=== PATIENT | male | born 1935 | race Caucasian/White ===

== ENCOUNTER 2017-07-06 11:15 | Inpatient (IN) | payer MEDICAID, OTHER ==
[~2017-07-06] VITALS: Ht 165.1 cm; Wt 65.9 kg
[2017-07-06] MEDS ORDERED: SODIUM CHLORIDE 0.9% 500 ML IVB ONE (11:55)
[2017-07-06 12:10] LABS: Basophils # (auto) 0 uL; Basophils % (auto) 0.5 % (0.0-2.0); CONDITION Y; Eosinophils # (auto) 0.1 uL; Eosinophils % (auto) 1.4 % (0.0-7.0); Hemoglobin 16.1 g/dL (13.5-17.5); Lymphocytes % (auto) 17.8 % (10.0-50.0); Mean Corpuscular Hgb Conc. 34.2 g/dL (32.0-36.0); Mean Corpuscular Volume 93.4 fL (80.0-100.0); Mean Platelet Volume 8.1 fL (7.4-10.4); Monocytes # (auto) 0.6 uL; Monocytes % (auto) 9.8 % (0.0-12.0); Neutrophils # (auto) 4.1 uL; Neutrophils % (auto) 70.5 % (37.0-80.0); Platelet Count (auto) 229 10^3/uL (140-450); Red Cell Distribution Width 12.9 % (11.6-16.0); White Blood Cell 5.9 10^3/uL (4.4-10.8)
[2017-07-06 12:28] LABS: INR 1.11 (0.9-1.15); Partial Thromboplastin Time 25.5 sec (22.64-33.71); Prothrombin Time 12.1 sec (9.37-12.3)
[2017-07-06 12:30] LABS: Albumin 3.4 g/dL (3.4-5.0); Anion Gap 8 (5-15); Blood Urea Nitrogen 18 mg/dL (7-18); Calcium 8.2 mg/dL (8.5-10.1); Carbon Dioxide 21 mmol/L (21-32); Chloride 108 mmol/L (98-107); GFR African American 134 mL/min; GFR Non-African American 111 mL/min; Glucose 112 mg/dL (74-106); Magnesium 2.6 mg/dL (1.6-2.6); Potassium 4.5 mmol/L (3.5-5.1); Sodium 137 mmol/L (136-145)
[2017-07-06 12:35] LABS: Alkaline Phosphatase 85 U/L (45-117); Aspartate Aminotransferase 12 U/L (15-37); Bilirubin, Total 0.8 mg/dL (0.2-1.0); Total Protein 6.8 g/dL (6.4-8.2)
[2017-07-06 13:44] LABS: Urine Bilirubin Negative (Negative); Urine Blood Negative /uL (Negative); Urine Color Yellow (Yellow); Urine Glucose Normal (Normal); Urine Ketone Negative (Negative); Urine Nitrite Negative (Negative); Urine RBC <1 /hpf (0 - 3); Urine Squamous Epithelial Cell FEW /hpf (<5); Urine Urobilinogen Normal (Negative); Urine pH 6.5 (5.0-8.0)
[2017-07-06] MEDS ORDERED: NITROGLYCERIN 0.4 MG SL TAB SL PRN (13:45)
[2017-07-06] MEDS ORDERED: MORPHINE SULF INJ 2 MG/ML SYRINGE 1ML IV PRN (13:45)
[2017-07-06] MEDS ORDERED: ALBUTEROL SULF 2.5 MG/0.5ML(0.5%) NEB SOLN NEB PRN (13:45)
[2017-07-06] MEDS: SODIUM CHLORIDE 0.9% 1,000 ML IV SCH (13:53)
[2017-07-06] MEDS ORDERED: ASPirin 81 mg TAB PO ONE (14:15)
[2017-07-06 14:25] LABS: Urine Bilirubin Negative (Negative); Urine Blood Negative /uL (Negative); Urine Color Yellow (Yellow); Urine Glucose Normal (Normal); Urine Ketone Negative (Negative); Urine Mucus FEW (None Seen); Urine Nitrite Negative (Negative); Urine RBC <1 /hpf (0 - 3); Urine Squamous Epithelial Cell FEW /hpf (<5); Urine Urobilinogen Normal (Negative); Urine pH 6.5 (5.0-8.0)
[2017-07-06] MEDS: TAMSULOSIN HYDROCHLORIDE 0.4 MG CAP PO SCH (18:13)
[2017-07-06 21:00] VITALS: BP 123/55
[2017-07-06] MEDS: DONEPEZIL HYDROCHLORIDE 5 MG TAB PO SCH (21:09)
[2017-07-06 21:30] VITALS: BP 123/55
[2017-07-07] VITALS (8 sets, daily range): BP systolic 107–150; BP diastolic 34–72
[2017-07-07] MEDS ORDERED: MOME0.05 TOP (02:30)
[2017-07-07] MEDS ORDERED: AMLO5TAB2 PO (02:30)
[2017-07-07] MEDS ORDERED: KETO2CRE TOP (02:30)
[2017-07-07] MEDS ORDERED: CARV3.1240 PO (02:30)
[2017-07-07] MEDS ORDERED: ALPR0.254 PO (02:30)
[2017-07-07] MEDS ORDERED: LISI10TA6 PO (02:30)
[2017-07-07 06:21] LABS: Basophils # (auto) 0 uL; Basophils % (auto) 0.6 % (0.0-2.0); CONDITION Y; Eosinophils # (auto) 0.2 uL; Eosinophils % (auto) 2.6 % (0.0-7.0); Hematocrit 43.2 % (41.0-53.0); Hemoglobin 14.9 g/dL (13.5-17.5); Lymphocytes # (auto) 1.4 uL; Lymphocytes % (auto) 22.5 % (10.0-50.0); Mean Corpuscular Hemoglobin 32.2 pg (28.0-32.0); Mean Corpuscular Hgb Conc. 34.5 g/dL (32.0-36.0); Mean Corpuscular Volume 93.4 fL (80.0-100.0); Mean Platelet Volume 8.4 fL (7.4-10.4); Monocytes # (auto) 0.6 uL; Neutrophils # (auto) 3.9 uL; Neutrophils % (auto) 64.3 % (37.0-80.0); Platelet Count (auto) 211 10^3/uL (140-450); Red Cell Distribution Width 13.1 % (11.6-16.0); White Blood Cell 6.1 10^3/uL (4.4-10.8)
[2017-07-07 06:42] LABS: Potassium 4.1 mmol/L (3.5-5.1)
[2017-07-07 06:53] LABS: Calcium 8.3 mg/dL (8.5-10.1)
[2017-07-07] MEDS: ASPirin 81 mg TAB PO SCH (10:25)
[2017-07-07] MEDS: TAMSULOSIN HYDROCHLORIDE 0.4 MG CAP PO SCH (18:02)
[2017-07-07] MEDS ORDERED: ZOLPIDEM TARTRATE 5 MG TAB PO PRN (21:30)
[2017-07-07] MEDS: DONEPEZIL HYDROCHLORIDE 5 MG TAB PO SCH ×2 (22:00→22:49)
[2017-07-07] MEDS: ALPRAZolam 0.25 MG TAB PO PRN (22:49)
[2017-07-08 06:00] VITALS: BP 139/75
[2017-07-08] MEDS: SODIUM CHLORIDE 0.9% 1,000 ML IV SCH (06:36)
[2017-07-08 09:00] VITALS: BP 130/68
[2017-07-08] MEDS: ASPirin 81 mg TAB PO SCH (11:21)
[2017-07-08] MEDS: ALPRAZolam 0.25 MG TAB PO PRN (11:21)
[2017-07-08 13:53] VITALS: BP 130/68
== END 2017-07-08 15:30 | disposition home or self-care (01) | DRG 312 ==
LOC: ER 11:15 → EDBD 11:15 → TELE 11:16 → TELE-WESTW 20:30
PROVIDERS: ADMIT Internal Medicine; ATTEND Family Medicine
DX: I95.2 Hypotension due to drugs (principal); I11.0 Hypertensive heart disease with heart failure; G30.9 Alzheimer's disease, unspecified; I50.9 Heart failure, unspecified; F02.80 Dementia in other diseases classified elsewhere, unspecified severity, without behavioral disturbance, psychotic disturbance, mood disturbance, and anxiety; N40.1 Benign prostatic hyperplasia with lower urinary tract symptoms; J44.9 Chronic obstructive pulmonary disease, unspecified; I25.10 Atherosclerotic heart disease of native coronary artery without angina pectoris; N39.498 Other specified urinary incontinence; E78.5 Hyperlipidemia, unspecified; G47.00 Insomnia, unspecified; F32.9 Major depressive disorder, single episode, unspecified; F41.9 Anxiety disorder, unspecified; Z80.0 Family history of malignant neoplasm of digestive organs; Z82.0 Family history of epilepsy and other diseases of the nervous system; Z86.73 Personal history of transient ischemic attack (TIA), and cerebral infarction without residual deficits; Z85.46 Personal history of malignant neoplasm of prostate; Z83.3 Family history of diabetes mellitus; Z82.49 Family history of ischemic heart disease and other diseases of the circulatory system; Z98.890 Other specified postprocedural states
CPT/HCPCS: 36415; 51702; 70450; 71010; 80048; 80053; 81001; 82607; 82962; 83605; 83735; 84443; 84484; 85025; 85610; 85730; 87040; 87086; 93005; 93306; 93886; 94761; 95819; 96360; 96361; 97116; 97163; 97530

== ENCOUNTER 2017-11-23 09:49 | Inpatient (IN) | payer OTHER ==
[~2017-11-23] VITALS: Ht 170.2 cm; Wt 66.5 kg
[~2017-11-23 09:49] MED LIST: ALPR0.254 PO; AMLO5TAB2 PO; CARV3.1240 PO; KETO2CRE4 TOP; LISI10TA6 PO; MOME0.05 TOP
[2017-11-23 10:51] LABS: Basophils # (auto) 0 uL; Basophils % (auto) 0.8 % (0.0-2.0); Eosinophils # (auto) 0.1 uL; Eosinophils % (auto) 2.3 % (0.0-7.0); Hematocrit 45.7 % (41.0-53.0); Hemoglobin 15.8 g/dL (13.5-17.5); Lymphocytes % (auto) 21.5 % (10.0-50.0); Mean Corpuscular Hemoglobin 32.3 pg (28.0-32.0); Mean Corpuscular Hgb Conc. 34.6 g/dL (32.0-36.0); Mean Corpuscular Volume 93.3 fL (80.0-100.0); Monocytes # (auto) 0.5 uL; Monocytes % (auto) 9.9 % (0.0-12.0); Neutrophils # (auto) 3.2 uL; Neutrophils % (auto) 65.5 % (37.0-80.0); Nucleated Red Blood Cells % 0.1 %; Platelet Count (auto) 197 10^3/uL (140-450); Red Cell Distribution Width 12.8 % (11.8-14.3); White Blood Cell 4.9 10^3/uL (4.4-10.8)
[2017-11-23 11:22] LABS: Alanine Aminotransferase 21 U/L (16-61); Albumin 3.5 g/dL (3.4-5.0); Alkaline Phosphatase 75 U/L (45-117); Anion Gap 7 (5-15); Aspartate Aminotransferase 11 U/L (15-37); BUN/Creatinine Ratio 29.6; Bilirubin, Total 0.6 mg/dL (0.2-1.0); Blood Urea Nitrogen 21 mg/dL (7-18); Calcium 8.7 mg/dL (8.5-10.1); Carbon Dioxide 26 mmol/L (21-32); Chloride 107 mmol/L (98-107); GFR African American 136 mL/min; GFR Non-African American 113 mL/min; Glucose 91 mg/dL (74-106); Magnesium 2.8 mg/dL (1.6-2.6); Potassium 4.3 mmol/L (3.5-5.1); Sodium 140 mmol/L (136-145); Total Protein 6.8 g/dL (6.4-8.2)
[2017-11-23] MEDS ORDERED: ONDANSETRON HCL 4 MG/2 ML VIAL IV PRN (13:00)
[2017-11-23] MEDS ORDERED: MORPHINE SULFATE 10 MG/ML INJ 1ML SDV IV PRN (13:00)
[2017-11-23] MEDS ORDERED: ACETAMINOPHEN 325 MG TAB PO PRN (13:00)
[2017-11-23] MEDS ORDERED: cloNIDine HCL 0.1 MG TAB PO PRN (13:00)
[2017-11-23] MEDS ORDERED: ASPirin-EC 81 mg tab PO ONE (13:00)
[2017-11-23] MEDS ORDERED: HYDROcodone-ACET 5/325MG TAB PO PRN (13:00)
[2017-11-23] MEDS ORDERED: DOCUSATE SOD 100 MG CAP PO PRN (13:00)
[2017-11-23] MEDS ORDERED: TEMAZEPAM 15 MG CAP PO PRN (13:00)
[2017-11-23] MEDS ORDERED: NITROGLYCERIN 0.4 MG SL TAB SL PRN (13:00)
[2017-11-23] MEDS: SODIUM CHLORIDE 0.9% 1,000 ML IV SCH (13:48)
[2017-11-23] MEDS: ENOXAPARIN SOD 40 MG/0.4 ML SYRINGE SC SCH (13:49)
[2017-11-23] MEDS: FAMOTIDINE 20 MG TAB PO SCH ×2 (13:49→22:37)
[2017-11-23 16:18] LABS: Urine Bacteria NONE SEEN /hpf (None Seen); Urine Blood Negative /uL (Negative); Urine Mucus FEW (None Seen); Urine Specific Gravity 1.026 (1.001-1.035); Urine WBC 1 /hpf (0 - 3)
[2017-11-23 18:38] VITALS: BP 163/88
[2017-11-23 18:54] VITALS: BP 163/88
[2017-11-23] MEDS: MORPHINE SULFATE 10 MG/ML INJ 1ML SDV IV PRN (19:41)
[2017-11-23] MEDS: ATORVASTATIN 20 MG TAB PO SCH (22:36)
[2017-11-23] MEDS: CARVEDILOL 3.125 MG TAB PO SCH (22:36)
[2017-11-24 05:00] VITALS: BP 135/72
[2017-11-24] MEDS: MORPHINE SULFATE 10 MG/ML INJ 1ML SDV IV PRN (05:10)
[2017-11-24] MEDS: SODIUM CHLORIDE 0.9% 1,000 ML IV SCH ×2 (06:24→21:53)
[2017-11-24 06:53] LABS: Basophils # (auto) 0 uL; Basophils % (auto) 0.7 % (0.0-2.0); Eosinophils # (auto) 0.2 uL; Hematocrit 44.9 % (41.0-53.0); Hemoglobin 15.7 g/dL (13.5-17.5); Lymphocytes # (auto) 1.3 uL; Lymphocytes % (auto) 21.5 % (10.0-50.0); Mean Corpuscular Hemoglobin 32.9 pg (28.0-32.0); Mean Corpuscular Hgb Conc. 34.9 g/dL (32.0-36.0); Mean Corpuscular Volume 94.3 fL (80.0-100.0); Monocytes # (auto) 0.6 uL; Monocytes % (auto) 9.9 % (0.0-12.0); Neutrophils # (auto) 3.9 uL; Neutrophils % (auto) 64.9 % (37.0-80.0); Nucleated Red Blood Cells % 0.2 %; Platelet Count (auto) 173 10^3/uL (140-450); Red Blood Cells 4.76 10^6/uL (4.5-5.90); Red Cell Distribution Width 12.7 % (11.8-14.3); White Blood Cell 6.1 10^3/uL (4.4-10.8)
[2017-11-24 07:43] LABS: Albumin 3.1 g/dL (3.4-5.0); BUN/Creatinine Ratio 23.1; Bilirubin, Total 0.7 mg/dL (0.2-1.0); Calcium 8.2 mg/dL (8.5-10.1); Potassium 4.4 mmol/L (3.5-5.1); Total Protein 6.1 g/dL (6.4-8.2)
[2017-11-24 07:53] VITALS: BP 156/78
[2017-11-24 08:00] VITALS: BP 135/72
[2017-11-24] MEDS ORDERED: hydrALAZINE HCL 25 MG TAB PO PRN (08:30)
[2017-11-24] MEDS: FAMOTIDINE 20 MG TAB PO SCH ×2 (09:31→21:53)
[2017-11-24] MEDS: CARVEDILOL 3.125 MG TAB PO SCH ×2 (09:31→21:52)
[2017-11-24] MEDS: ALPRAZolam 0.25 MG TAB PO PRN ×2 (09:33→18:47)
[2017-11-24] MEDS: ENOXAPARIN SOD 40 MG/0.4 ML SYRINGE SC SCH (09:33)
[2017-11-24] MEDS ORDERED: amLODIPine BESYLATE 5 MG TAB PO SCH (10:00)
[2017-11-24] MEDS ORDERED: MULTIPLE VITAMIN TAB PO SCH (10:00)
[2017-11-24] MEDS ORDERED: KETOCONAZOLE 2 % TOPICAL CREAM 15GM TOP SCH (10:00)
[2017-11-24] MEDS ORDERED: ASPirin-EC 81 mg tab PO SCH (10:00)
[2017-11-24] MEDS ORDERED: ELOCON 0.1% TOP SCH (10:00)
[2017-11-24] MEDS ORDERED: LISINOPRIL 10 MG TAB PO SCH (10:00)
[2017-11-24 12:07] VITALS: BP 119/66
[2017-11-24 17:30] VITALS: BP 146/74
[2017-11-24] MEDS ORDERED: QUEtiapine FUMARATE 25 MG TAB PO ONE (20:45)
[2017-11-24 21:51] VITALS: BP 121/71
[2017-11-24] MEDS: ATORVASTATIN 20 MG TAB PO SCH (21:53)
[2017-11-25] MEDS: MORPHINE SULFATE 10 MG/ML INJ 1ML SDV IV PRN (02:52)
[2017-11-25 05:09] VITALS: BP 112/51
[2017-11-25] MEDS: SODIUM CHLORIDE 0.9% 1,000 ML IV SCH (06:09)
[2017-11-25 08:10] VITALS: BP 130/62
[2017-11-25] MEDS ORDERED: QUEtiapine FUMARATE 25 MG TAB PO SCH (17:00)
== END 2017-11-25 08:40 | disposition home or self-care (01) | DRG 69 ==
LOC: ER 09:49 → TELE 09:50 → TELE-EAST 17:54
PROVIDERS: ADMIT Internal Medicine; ATTEND Family Medicine
DX: G45.9 Transient cerebral ischemic attack, unspecified (principal); S09.8XXA Other specified injuries of head, initial encounter; I11.0 Hypertensive heart disease with heart failure; I50.9 Heart failure, unspecified; W18.39XA Other fall on same level, initial encounter; G30.9 Alzheimer's disease, unspecified; F02.80 Dementia in other diseases classified elsewhere, unspecified severity, without behavioral disturbance, psychotic disturbance, mood disturbance, and anxiety; E78.5 Hyperlipidemia, unspecified; F29 Unspecified psychosis not due to a substance or known physiological condition; I25.10 Atherosclerotic heart disease of native coronary artery without angina pectoris; R26.9 Unspecified abnormalities of gait and mobility; R55 Syncope and collapse; J44.9 Chronic obstructive pulmonary disease, unspecified; N40.0 Benign prostatic hyperplasia without lower urinary tract symptoms; Z80.0 Family history of malignant neoplasm of digestive organs; Z82.0 Family history of epilepsy and other diseases of the nervous system; Z91.013 Allergy to seafood; Z82.49 Family history of ischemic heart disease and other diseases of the circulatory system; Z85.46 Personal history of malignant neoplasm of prostate; Z86.73 Personal history of transient ischemic attack (TIA), and cerebral infarction without residual deficits; Z83.3 Family history of diabetes mellitus; Y93.89 Activity, other specified; Y92.89 Other specified places as the place of occurrence of the external cause; Y99.8 Other external cause status
CPT/HCPCS: 36415; 70450; 71045; 73502; 80053; 81001; 82962; 83735; 84484; 85025; 92610; 93005; 93306; 93886; 96360